=== PATIENT | female | born 1990 | race Caucasian/White ===

== ENCOUNTER 2024-07-23 10:43 | Outpatient (REF) | payer OTHER, MEDICAID, SELFPAY ==
[2024-07-23 11:05] LABS: MANUAL DIFF FLAG NO
[2024-07-23 11:28] LABS: Basophils Percent Auto 0.1 % (0-2); Eosinophils Absolute Auto 0.2 X10*3/uL (0.0-0.4); Eosinophils Percent Auto 1.8 % (0-4); Hematocrit 34.7 % (37.0-47.0); Hemoglobin 10.7 g/dl (12.0-16.0); Imm Gran Abs Auto 0.04 X10*3/uL (0.00-0.03); Imm Gran Pct Auto 0.4 % (0.0-0.4); Lymphocytes Absolute Auto 2.1 X10*3/uL (1.2-4.9); Lymphocytes Percent Auto 22.7 % (20-40); Mean Corpuscular HGB Conc 30.8 g/dl (31.0-35.0); Mean Corpuscular Hemoglobin 22.5 pg (27.0-33.0); Mean Corpuscular Volume 73.1 fL (80.0-98.0); Mean Platelet Volume 10.2 fL (9.4-12.3); Monocytes Absolute Auto 0.7 X10*3/uL (0.1-1.2); Monocytes Percent Auto 7.4 % (2-11); Neutrophils Absolute Auto 6.3 x10*3/uL (2.0-8.3); Neutrophils Percent Auto 67.6 % (45-73); Platelet Count 288 X10*3/uL (160-400); Red Blood Count 4.75 X10*6/uL (4.20-5.50); Red Cell Distribution Width 17.3 % (11.0-16.0); White Blood Count 9.3 X10*3/uL (4.8-10.8)
[2024-07-23 11:34] LABS: Estimated Average Glucose 120 mg/dL; Hemoglobin A1C 111.4418 umol/L; Hemoglobin A1c % 5.8 % (<6.0)
[2024-07-23 12:01] LABS: Rheumatoid Factor < 13.0 IU/mL (<15.0)
[2024-07-23 12:03] LABS: C Reactive Protein 1.93 mg/dL (< or = 0.50); Iron 31 mcg/dL (30-160); Percent Iron Saturation 10 % (15-50); Total Iron Binding Capacity 309 mcg/dL (228-428); Unsaturated Iron Binding 278 ug/dL
[2024-07-23 12:08] LABS: Erythrocyte Sedimentation Rate 17 MM/HR (0-20)
[2024-07-23 12:18] LABS: Vitamin D 25-OH Total 28.6 ng/mL (>30)
--- OUTSIDE RECORDS SUMMARY | 2024-07-23 13:26 | XMS_ITS ---
Author Organization [facility] Address [address] [place] [address] Care Team Providers Care Furnace Hand Name Role Phone Florentino DOWLING, Cheryl Primary Care Provider Unavail able Black, Chantal Unavailable [phone] Ling Zamora Unavailable [phone] Allergies No Known Allergies REASON FOR VISIT Heel pain, Skin Problem Medications Medication SIG (Take, Route, Frequency, Duration) Notes Start Date End Date Status Probiotic Not-Taking LamISIL 250 MG 1 tablet Orally Once a day for 7 days then stop medication for 3 weeks then redo cycle for 90 days 09/12/2018 Not-Taking valACYclovir HCl Not -Taking Larissia Not-Taking Zoloft 50 MG 1 tablet Orally Once a day for 30 day(s) Not-Taking Ciclopirox Olamine 0.77 % 1 application Externally Twice a day to skin of feet including between the toes for 30 days Active Nabumetone 750 MG 1 tablet Orally ONCE A DAY WITH FOOD for 30 day(s) 02/22/2024 Active Atorvastatin Calcium Active Custom Orthotics as directed 11/29/2022 Active Night Splint AFO - L1930 as directed 11/23/2022 Active Multivitamin Active Cats Claw Active Zinc Active Vitamin C Active Iron Active Social History Tobacco Use: Social History Observation Description Date Details (start date - stop date) Former Smoker NA - NA Tobacco Use/Smoking Question Answer Notes Are you a: former smoker Additional Findings: Tobacco Non-User Current no n-smoker Alcohol Screen Question Answer Notes Did you have a drink contain ing alcohol in the past year? Yes How often did you have a dri nk containing alcohol in the past year? Monthly or less (1 point) Points 1 Interpretation Negative Tobacco use other than smoking: Question Answer Notes Are you an other tobacco user? No Problems Problem Type SNOMED Code ICD Code Onset Dates Problem Status W/U Status Risk Notes Problem Plantar fasciitis (204201796) Plantar fasciitis (M72.2) Active confirmed Resistant to previous conservative treatment Vital Signs Height 5ft7in in 06/05/2024 Weight 280 lbs 06/05/2024 BMI 43.85 kg/m2 06/05/2024 Blood pressure systolic 115 mm Hg 06/05/19 25 Blood pressure diastolic 70 mm Hg 025 Procedures Procedure Date Ordered Date Performed Result Body Sit e ,J8094-[id number] TENDON SHEATH/LIGAMENT 06/05/2024 N/A Encounters Encounter Location Date Provider Diagnosis [facility] [address] [place] [address] 06/05/2024 Ling Sunaker Plantar fasciitis M72.2 and Tinea pedis of both feet B35.3 Assessments Encounter Date Diagnosis (ICD Code) Assessment Notes Treatment Notes Treatment Clinical Notes Section Notes 06/05/2024 Plantar fasciitis (ICD-10 - M72.2) Resistant to previous conservative treatment Patient Educated with: RICE THERAPY.pdf (RICE THERAPY.pdf) Patient Educated with: INJECTIONTHERA PY.pdf (INJECTIONTHER APY.pdf) 06/05/2024 Tinea pedis of both feet (ICD-10 - B35.3) Plan Of Treatment Medication Medication Name Sig Start Date Stop Date Notes Ciclopirox Olamine 0.77 % 1 application Externally Twice a day to skin of feet including between the toes for 30 days Treatment Notes Assessment Notes Plantar fasciitis Patient Educated wit h: RICE THERAPY.pdf (RICE THERAPY.pdf) Patient Educated with: INJECTIONTHERAPY.pdf (INJECTIONTHERAPY.pdf) Pending Test Test Name Order Date ,[id number] TENDON SHEATH/LIGAMENT 0 06/05/2024 Next Appt Details Follow Up: 3 Months, Reason: Provider Name:Ling colindres, 09/23/2024 09:00:00 AM, [address] [facility], [address], [place], [address], Procedure Notes * Category Sub-Category Detail Notes Injection Tendon Sheath or Fascia 81195, J 7502 Injection - LEFT Plantar Fascia w/ mixture of Celestone Soluspan 3mg and 1cc 1 percent Xylocaine Plain anes. utilizing aseptic technique. The patient tolerated the procedure well. A dry sterile dressing was applied. Post injection instructions were dispensed, verbally discussed, and confirmed understood by the patient. I explained that a steroid and local anesthetic injections are administered to relieve pain and inflammation and thereby meant to improve function. I explained the possible complications including but not limited to signs/symptoms of steroid flare, infection, bruising, atrophy, discoloration of skin, change/deviation in toe position, and that additional injections may be necessary, Patient relates post-procedural pain assessment improved at ( 0-1) out of 10 Progress Notes * Evelyn SCHROEDER BDOB:[birth year] (34 yo F)Acc No.[id number]:06/05/2024 Progress Note Patient:?Evelyn SCHROEDER B Provider:?Ling Zamora DPM :1990???Age:34 Y???Sex:Female D ate:06/05/2024 Address:[address] [place] [address] Pcp:Cheryl Good NP Subjective: * Chief Complaints: * ???Heel painSkin Problem * HPI: ???Heel pain:?Treatments:?., oral anti-inflammatories, pre-fabricated orthoses, change in shoes, rest/alter normal daily activity.?Severity/Quality:?Pre-injection procedure pain assessment - ( 7) out of 10.?Misc:?Patient states previous conservative therapy has not provided acceptable relief. Despite previous treatments/efforts, patient continues to relate substantial pain and significant functional disability during activity , The patient denies to have received any vaccine therapy within the past month.?Skin problems:?Nature:?scaling , redness.?Location:?Left foot.?Duration:?several days.?Course:?worse.? * ROS:?General/Constitutional:?Nausea?denies.?Vomiting?denies.?Hunger Thirst?denies.?Loss appetite?denies.?Chills?denies.?Fatigue?denies.?Fever?denies.?Night Sweats?denies.?Unexplained weight loss?denies.?Unexplained weight gain?denies.?HEENTM:?Dentures?denies.?Dizziness?denies.?Glasses/contacts?admits.?Retinopathy?de nies.?Blurred/double vision?denies.?TMJ?denies.?Discharge/drainage?denies.?Implants?denies.?Sore throat?denies.?Dental implants?denies.?Hard of hearing ?denies.?Difficulty chewing/swallowing/speaking?denies.?Nose bleeds?denies.?Sore mouth?denies.?Respiratory:?On Oxygen?denies.?Pneumonia/pleurisy?denies.?Bronchitis?denies.?Emphysema?denies.?C oughing?denies.?Cough blood?denies.?Shortness of breath?denies.?Wheezing?denies.?Cardiovascular:?Pacemaker?denies.?MVP?denies.?WPW?denies.?CHF?denies.?Heart attack?denies.?Septal defect?denies.?Rapid beat?denies.?Chest pain ?denies.?Atrial Fib.?denies.?Murmur/Palpitations?denies.?Gastrointestinal:?Hemorrhoids?denies.?Stomach/Abdominal pain?denies.?Dark blood stool?denies.?Irritable bowel ?denies.?Constipation?denies.?Diarrhea?denies.?Hematology:?Swelling?denies.?Clots?denies.?Varicose Veins?denies.?Bruising?denies.?Bleeding problem?denies.?Genitourinary:?Blood urine?denies.?Frequent/Painfu/urination/bladder control?denies.?Kidney stones?denies.?Infection (UTI)?denies.?Nephropathy?denies.?sex trans dis (STD)?denies.?Prostate?denies.?Musculoskeletal:?Hammertoes?denies.?Bunions?denies.?Back Pain?denies.?Muscle Cramps/ Resting?denies.?Muscle cramps / walking?denies.?Generalized aches and pains?denies.?Weakness?denies.?Integ.:?Tovar?denies.?Scars?denies.?Corns/calluses?denies.?Ingrown nails?denies.?Painful nails?denies.?Open Sores?denies.?Rashes?denies.?Neurologic:?Difficulty sleeping?denies.?Brain disorder?denies.?Numbness?denies.?Balance trouble?denies.?Confusion?denies.?Fainting/blackouts?denies.?Tingling?denies.?Tr emors?denies.? * Medical History:? * Surgical History:? 2011, 2016,2022 * Hospitalization/Major Diagno stic Procedure:?Denies Past Hospitalization * Family History:?Mother: massiel rodriguez, diagnosed with Diabetic - NIDDM.?Father: alive, heart attack, diagnosed with Unspecified heart disease.?Paternal Grand Mother: cancer.?Paternal Grand Father: stroke, heart attack, diagnosed with Unspecified heart disease.?Maternal Grand Father: cancer.? * Social History:?Tobacco Use:?Tobacco Use/Smoking?Are you a:?former smoker ?Additional Findings: Tobacco Non-User?Current non-smoker ?Tobacco use other than smoking?Are you an other tobacco user??No ???Drugs/Alcohol:?Drugs?Have you used drugs other than those for medical reasons in the past 12 months??No ?Alcohol Screen?Did you have a drink containing alcohol in the past year??Yes ?How often did you have a drink containing alcohol in the past year??Monthly or less (1 point) ?Points?1 ?Interpretation?Negative ???Miscellaneous:?Caffeine: yes, 1 cup per day. ?Children: yes, 3. ?Exercise: no. ?Marital status: single. 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 * Medications:?TakingIron Alondra min C Zinc Cats Claw Multivitamin Night Splint AFO - L1930 as directed Custom Orthotics as directed Atorvastatin Calcium Nabumetone 750 MG Tablet 1 tablet Orally ONCE A DAY WITH FOOD Taking Iron Taking Vitamin C Taking Zinc Taking Cats Claw Taking Multivitamin Taking Night Splint AFO - L1930 as directed Taking Custom Orthotics as directed Taking Atorvastatin Calcium Taking Nabumetone 750 MG Tablet 1 tablet Orally ONCE A DAY WITH FOOD Not-Taking/PRNProbiotic Zoloft 50 MG Tablet 1 tablet Orally Once a day Larissia valACYclovir HCl LamISIL 250 MG Tablet 1 tablet Orally Once a day for 7 days then stop medication for 3 weeks then redo cycle Medication List reviewed and reconciled with the patientNot-Taking/PRN Probiotic Not-Taking/PRN Zoloft 50 MG Tablet 1 tablet Orally Once a day Not-Taking/PRN Larissia Not-Taking/PRN valACYclovir HCl Not-Taking/PRN LamISIL 250 MG Tablet 1 tablet Orally Once a day for 7 days then stop medication for 3 weeks then redo cycle Medication List reviewed and reconciled with the patient * Allergies:?N.K.D.A.yes[Tommy rodriguez Verified] Objective: * Vitals:?Ht:5ft7in, Wt:280, B SD:43.85, Shoe size:9, BP:115/70mm Hg, Ht-cm: 170.18 cm, Wt-k.01 kg. * Examination: ???Dermatologic: ?SKIN FINDINGS:?Skin shows sign(s) of, erythema, scaling, in a moccasin fashion, no fissure(s) present, LEFT foot.?Heel Pain: ?INSPECTION REVEALS:?Pain on Palpation to Plantar Fascia med. and central bands, intrinsic musc., infra-calcaneal bursa, and med calc tubercle,LEFT.?General Examination: ?GENERAL APPEARANCE:?Reveals a pleasant, alert, well-nourished, well- developed, well hydrated individual, who demonstrates proper attention to hygiene/body habitus, and is in no acute distress, Pt serves as own?historian for office visit today.?ORIENTED:?person, place, and time.?Neurological: ?SENSORY:?Neurological exam reveals intact sensorium, pain sensation normal, vibration sensation intact, pinprick sensation is normal in the lower extremities, Pt denies, anesthesia, burning, paresthesia, tingling, B/L.?DEEP TENDON REFLEXES:?Achilles, 2/4, B/L.?Vascular: ?DP PULSES (B):?3/4, B/L.?PT PULSES (B):?3/4, B/L.?CAPILLARY FILL TIME:?immediate, all digits, B/L.?TROPHIC CONDITION-TEXTURE/ELASTICITY/TURGOR/HAIR GROWTH (B):?normal, B/L.?TEMPERTURE GRADIENT (C):?warm to cool, proximal to distal, B/L.?PIGMENTATION:?normal, B/L.?EDEMA (C):?absent, B/L.?Orthopedic: ?MUSCLE STRENGTH:?5/5 all groups in a symmetrical fashion , B/L.? Assessment: * Assessment: 1.?Plantar fasciitis - M72.2 (Primary)???Notes :Resistant to previous conservative treatment???2.?Tinea pedis of both feet - B35.3???Specify :Acute problem, Uncomplicated (3),Rx drug management (4)??? Plan: * Treatment: 2.?Tinea pedis of both feet? Start Ciclopirox Olamine Cream, 0.77 %, 1 application, Externally, Twice a day to skin of feet including between the toes, 30 days, 60, Refills 2.?? * Procedures:?Injection:?Tendon Sheath or Fascia?27264, J0702 Injection - LEFT Plantar Fascia w/ mixture of Celestone Soluspan 3mg and 1cc 1 percent Xylocaine Plain anes. utilizing aseptic technique. The patient tolerated the procedure well. A dry sterile dressing was applied. Post injection instructions were dispensed, verbally discussed, and confirmed understood by the patient. I explained that a steroid and local anesthetic injections are administered to relieve pain and inflammation and thereby meant to improve function. I explained the possible complications including but not limited to signs/symptoms of steroid flare, infection, bruising, atrophy, discoloration of skin, change/deviation in toe position, and that additional injections may be necessary, Patient relates post-procedural pain assessment improved at ( 0-1) out of 10.? * Procedure Codes:?01239 INJ T ENDON SHEATH/ETDELHUBC5383 INJ BETAMETHSN ACTAT&SOD PHOSPH-3MG * Preventive Medicine:? ??Counseling:?Discussion:?-13: Office or other outpatient visit for the evaluation and management of an established patient, which required a medically appropriate history and/or examination and LOW level of DECISION MAKING for: 1 STABLE ACUTE UNCOMPLICATED PROBLEM, 2 OR MORE MINOR PROBLEMS, OR 1 STABLE CHRONIC PROBLEM, THAT POSE(S) A LOW RISK FOR MORBIDITY/MORTALITY. The visit on the day of the encounter encompassed interpreting the data and educating the patient as to the nature of their condition, treatment options available according to their individual PMH, meds, allergies, and overall health/living conditions, as well as any potential risks or complications that may occur from a failure to adhere to, and participate in, the recommended course of therapy. The discussion included a complete verbal, and/or written explanation of the examination results, any x-rays taken, the proposed diagnosis, and outline of the treatment plan. A schedule for future care needs was also explained. The patient verbalized an understanding of the instructions at this time and agreed to be an active participant in their treatment. If the patient should think of any questions or concerns after the visit, I have encouraged the patient to call the office.?P.R.I.C.E.:?The patient was counseled on the use of P.R.I.C.E. and NSAIDS (if well tolerated) to aid in the recovery from their painful condition.?Steriod Injection:?I explained that a steroid and local anesthetic injections are administered to relieve pain and inflammation and thereby meant to improve function. I explained the possible complications including but not limited to signs/symptoms of steroid flare, infection, bruising, atrophy, discoloration of skin, change/deviation in toe position, and that additional injections may be necessary, cortisone post-injection informative educational handout was dispensed to and reviewed with the patient, In order to prevent any compromise of an effective immune response, it was recommended the patient refrain from any vaccine therapy for the next month. Patient verbally confirmed understanding the previously mentioned protocol.?Tinea Pedis:?The patient was counseled on the diagnosis, potential etiologies, and treatment options for their skin condition. We discussed the risks and benefits of each option from performing no treatment, to utilizing OTC topical skin creams, prescription topical creams, customized compounded topical medications, and, if necessary, to utilize oral antifungal therapy. We discussed the advantages and disadvantages of each possible treatment and importance for adherence to all the recommended therapies for optimum success and avoid potential complications such as open sore/infection/possible hospitalization. We discussed the potential effectiveness of each topical preparation as well as each ones possible side effects and/or patient medication interactions if oral therapy is selected. Patient questions re: the advantages and disadvantages of each treatment choice, medication use/dosage, successful outcomes, and application consistency were reviewed and the patient verbalized that all answers were clearly understood. The patient was told they can help alleviate symptoms by utilizing moisture absorbant innersoles with activated charcoal and baking soda, applying antifungal sprays daily, aerating toe web spaces at night by putting cotton or lambs wool between the toes, alternating shoe gear daily if possible so they can dry out, changing socks at least once during the day, wearing well-ventilated shoes or sandals. The patient has decided to apply antifungal skin creams to their feet as directed. Rx was sent to their pharmacy at the time of visit.? ??Screening/Special Tests:?Fall Risk?Screening:?No falls in the past year ?FALLS: Screening for Future Fall Risk?Have you had any falls with injury in the past year??No * Follow Up:?3 Months * Images: * Sign off status: Completed true * Provider:?Ling Zamora DPM Date:?0 06/05/2024 Generated for James aguilera/Thania/Elizabeth on:?07/23/2024 01:26 PM EST History and Physical Notes * HPI (History of Present Illness) Category Sub-Category Detail Notes Category Not es Heel pain Severity/Quality: Pre-injection procedure pain assessment - ( 7) out of 10 Treatments: ., oral anti-inflamm atories, pre-fabricated orthoses, change in shoes, rest/alter normal daily activity Misc: Patient states previ ous conservative therapy has not provided acceptable relief. Despite previous treatments/efforts, patient continues to relate substantial pain and significant functional disability during activity , The patient denies to have received any vaccine therapy within the past month Skin problems Nature: scaling , redness Location: Left foot Duration: several days Course: worse Examination Category Sub-Category Detail Notes Category Not es Heel Pain INSPECTION REVEALS: Pain on Palp ation to Plantar Fascia med. and central bands, intrinsic musc., infra-calcaneal bursa, and med calc tubercle,LEFT Neurological SENSORY: Neurological exa m reveals intact sensorium, pain sensation normal, vibration sensation intact, pinprick sensation is normal in the lower extremities, Pt denies, anesthesia, burning, paresthesia, tingling, B/L DEEP TENDON REFLEXES: Achilles, 2/4, B/L Dermatologic SKIN FINDINGS: Skin shows sign( s) of, erythema, scaling, in a moccasin fashion, no fissure(s) present, LEFT foot Orthopedic MUSCLE STRENGTH: 5/5 all groups in a symm etrical fashion , B/L General Examination GENERAL APPEARANCE: Reveals a pleasant, alert, well- nourished, well-developed, well hydrated individual, who demonstrates proper attention to hygiene/body habitus, and is in no acute distress, Pt serves as own historian for office visit today ORIENTED: person, place, and t maryam Vascular DP PULSES (B): 3/4, B/L PT PULSES (B): 3/4, B/L CAPILLARY FILL TIME: immediate, all digi ts, B/L TEMPERTURE GRADIENT (C): warm to cool, p roximal to distal, B/L TROPHIC CONDITION-TEXTURE/ELASTICITY/TURGOR/HAIR GROWTH (B): normal, B/L EDEMA (C): absent, B/L PIGMENTATION: normal, B/L
--- OUTSIDE RECORDS SUMMARY | 2024-07-23 13:26 | XMS_ITS | Patient Health Record ---
Author Organization [facility] Address [address] [facility] [place] [address] Care Team Providers Care Research Chef Name Role Phone Florentino DOWLING, Cheryl Primary Care Provider Unavail able Black, Chantal Unavailable [phone] Salo Juan Unavailable [phone] Ling Zamora Unavailable [phone] Allergies No Known Allergies Reason For Referral No Information Medications Medication SIG (Take, Route, Frequency, Duration) Notes Start Date End Date Status Vitamin C Active Iron Active Larissia Not-Taking Zoloft 50 MG 1 tablet Orally Once a day for 30 day(s) Not-Taking Ciclopirox Olamine 0.77 % 1 application Externally Twice a day to skin of feet including between the toes for 30 days Active Probiotic Not-Taking Nabumetone 750 MG 1 tablet Orally ONCE A DAY WITH FOOD for 30 day(s) 02/22/2024 Active Atorvastatin Calcium Active Custom Orthotics as directed 11/29/2022 Active Night Splint AFO - L1930 as directed 11/23/2022 Active Multivitamin Active Cats Claw Active Zinc Active LamISIL 250 MG 1 tablet Orally Once a day for 7 days then stop medication for 3 weeks then redo cycle for 90 days 09/12/2018 Not-Taking valACYclovir HCl Not -Taking Social History Tobacco Use: Social History Observation [...] W/U Status Risk Notes Problem Plantar fasciitis (500715254) Plantar fasciitis (M72.2) Active confirmed Resistant to previous conservative treatment Vital Signs Blood pressure diastolic 70 mm Hg 06/05/2024 Height 5ft7in in 06/05/2024 Blood pressure systolic 115 mm Hg 06/05/2024 Weight 280 lbs 06/05/2024 BMI 43.85 kg/m2 06/05/2024 Procedures Procedure Date Ordered Date Performed Result Body Sit e 34629,[id number] TENDON SHEATH/LIGAMENT 06/05/2024 N/A Encounters Encounter Location Date Provider Diagnosis [address] [address] 02/22/2024 Juan Leong Plantar fascial fibromatosis M72.2 ; Calcaneal spur, right foot M77.31 ; Pain in left foot M79.672 and Pain in right foot M79.[address] [address] 06/05/2024 Ling Zamora Plantar fasciitis M72.2 and Tinea pedis of both feet B35.[address] [address] 02/12/[address] [address] 02/22/[address] [address] 06/09/2024 Ling Zamora Assessments Encounter Date Diagnosis (ICD Code) Assessment Notes Treatment Notes Treatment Clinical Notes Section Notes 02/22/2024 Plantar fascial 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 - M72.2) 02/22/2024 Calcaneal spur, right foot (ICD-10 - M77.31) 06/05/2024 Plantar fasciitis (ICD-10 - M72.2) Resistant to previous conservative treatment Patient Educated with: RICE THERAPY.pdf (RICE THERAPY.pdf) Patient Educated with: INJECTIONTHER SONIY.pdf (INJECTIONTHE RAPY.pdf) 06/05/2024 Tinea pedis of both feet (ICD-10 - B35.3) 02/22/2024 Pain in left foot (ICD-10 - M79.672) 02/22/2024 Pain in right foot (ICD-10 - M79.671) Plan Of Treatment Pending Test Test Name Order Date X ray : Foot, left 3V 11/23/2022 X ray : Foot, right 3V 11/23/2022 [id number] TENDON SHEATH/LIGAMENT 0 06/05/2024 Next Appt Details Provider Name:Ling Quan jens, 09/23/2024 09:00:00 AM, [address] [address], [place], [address], Insurance Providers Payer Name Payer Address Payer Phone Subscriber Number Group Number Insured Name Patient Relationship to Insured Coverage Start Date Coverage End Date [employer] Benefits [address] [address] [place] [address] [id number] Evelyn Burdick Self - patient is the insured Medical (General) History Medical History History ICD Code Chicken pox Anemia Anxiety Cholesterol Headaches/Migraines Surgical History Surgery Date(Month/Year) 2011, 2016,2022
--- OUTSIDE RECORDS SUMMARY | 2024-07-23 13:26 | XMS_ITS | Clinical Summary ---
Author Organization [facility] Address [address] [place] [address] Care Team Providers Care Critical Care Nurse Name Role Phone Unavailable Primary Care Provider Unavailabl e Source Comments PLEASE NOTE, if this patient is a minor, it may be UNLAWFUL to discuss sensitive information that is contained in these records (such as FAMILY PLANNING, MENTAL HEALTH or SUBSTANCE ABUSE) with the minor patient's parent or other person without the patient's specific authorization.[facility] Social History Tobacco Use Types Packs/Day Years Used Date Smoking Tobacco: Never Assessed Social Connections Answer Date Recorded Social Connections and Isolation 0 06/01/2021 Financial Resource Strain Answer Date R ecorded Financial Resource Strain 0 2021 Stress Answer Date Recorded Stress 0 06/01/2021 Physical Activity Answer Date Recorded Physical Activity 0 06/01/2021 Food Insecurity Answer Date Recorded Food 0 06/01/2021 Transportation Needs Answer Date Record ed Transportation 0 06/01/2021 Housing Stability Answer Date Recorded Housing 0 06/01/2021 Safety and Environment Answer Date Souleymane rded Safety 0 06/01/2021 Utilities Answer Date Recorded Utilities 0 06/01/2021 Employment Answer Date Recorded Employment 0 06/01/2021 Comments Unknown Sex and Gender Information Value Date Recorded Sex Assigned at Female 05/30/2022 6:03 AM PST Legal Sex Female 11:43 AM PST Gender Identity Female 05/30/2022 6:03 AM PST Sexual Orientation Straight 05/30/2022 6: 03 AM PST Plan of Treatment Health Maintenance Due Date Last Done Comments HPV Screening 1990 Hepatitis C Screening 1990 Pap + HPV 1990 Tobacco Screening 1990 HIV Screening 2005 Relationship Safety Screening/Counseling 2005 Hypertension Screening (#1) 2008 Cervical Cancer Screening 2011 Pap Smear 2011 Iuk-UKNON-72 ( season) 2024 021, 03/31/2021 Imm-Influenza (#1) 2024 05/11/2023, 1 , 03/28/2010 Alcohol and Drug Screen 05/28/2024 Depression Annual Screen 05/28/2024 Imm-DTaP/Tdap/Td (10 - Td or Tdap) 07/18/2032 07/18/2022, 11/12/2017, 08/25/2011, Additional history exists Imm-Hepatitis B Completed 06/28/1996, 05/1995, 12/27/1995 Cervical Ablation/Cold-Knife Conization Discontinued Cervical Cryotherapy Discontinued Colposcopy Discontinued Endometrial Biopsy Discontinued Excision/Leep Discontinued HPV Genotyping Discontinued Vaginal Pap Discontinued Vulvoscopy Discontinued Insurance [place] MEDICAID [facility]
--- OUTSIDE RECORDS SUMMARY | 2024-07-23 13:27 | XMS_ITS ---
Author Organization [facility] Address [address] [place] [address] Care Team Providers Care Cafeteria Helper Name Role Phone Florentino DOWLING, Cheryl Primary Care Provider Unavail able Black, Chantal Unavailable [phone] Juan Leong Unavailable [phone] REASON FOR VISIT Buy Comfort Plus W9-9.5 3/4 length Encounters Encounter Location Date [facility] [address] [place] [address] 02/22/2024 Juan Leong Plan Of Treatment Next Appt Details Provider Name:Ling Quan jens, 09/23/2024 09:00:00 AM, [address] [address], [place], [address], Progress Notes * Evelyn SCHROEDER BDOB:[birth year] (33 yo F)Acc No.[id number]:02/22/2024 Patient:?Evelyn Schroeder :1990???Age:33 Y???Sex:Female Address:[address] [place] [address], [address] * true * Date:? Generated for Ronniei ale/Thania/eTransmitting on:?07/23/2024 01:26 PM EST
--- OUTSIDE RECORDS SUMMARY | 2024-07-23 13:27 | XMS_ITS ---
Author Organization [facility] Address [address] [place] [address] Care Team Providers Care Anthropology Department Chair Name Role Phone Florentino DOWLING, Cheryl Primary Care Provider Unavail able Black, Chantal Unavailable [phone] Ling Zamora Unavailable [phone] REASON FOR VISIT MRI appt Encounters Encounter Location Date Provider Diagnosis [facility] [address] [place] [address] 06/09/2024 Ling Zamora Plan Of Treatment Next Appt Details Provider Name:Ling colindres, 09/23/2024 09:00:00 AM, [address] [facility], [address], [address], Progress Notes * Evelyn SCHROEDER BDOB:[birth year] (34 yo F)Acc No.[id number]:06/09/2024 Patient:?Evelyn SCHROEDER :1990???Age:34 Y???Sex:Female Address:[address] [place] [address], [address] * true * Date:? Generated for Printi ng/Faxing/eTransmitting on:?07/23/2024 01:26 PM EST
--- OUTSIDE RECORDS SUMMARY | 2024-07-23 13:27 | XMS_ITS | Data Portability ---
Author Organization [place] [facility] Address [address] [place] [address] Care Team Providers Care Punchboard Stuffer Name Role Phone NADEEM PLUNKETT Primary Care Provider Assessment No assessment recorded. Plan of Treatment Reminders Order Date Submit Date Provider Last Modified By Organization Details Last Modified Time Details Appointments None recorded. Lab None recorded. Referral None recorded. Procedures None recorded. Surgeries None recorded. Imaging None recorded. Medication Orders Augmentin 875 mg-125 mg tablet 2023 [facility] [email or web address] [facility]/Pharmacy #[id number], [address] [place], [address], 4 15:32:53 Patient TargetsNo targets recorded. Patient InstructionsNo instructions recorded. Reason for Referral None Reported. Problems Name Problem SNOMED Code Status Onset Date Resolution Date Notes Provider Name and Address Organization Details Recorded Time Peritonsillar abscess 62413247 Active 2023 CONG Pennington MD [address] [place] [address], [address] [facility] 4 15:52:53 Problem Notes None recorded. Medical Equipment None Reported. Medications Name Sig Start Date Stop Date Status Note LastModified by Organization Details LastModified Time cyclobenzaprin e 10 mg tablet TAKE 1 TABLET BY MOUTH 3 TIMES A DAY FOR 10 DAYS active Not Available Not Available No t Available acetaminophen 325 mg tablet active Not Available Not Availabl e Not Available atorvastatin 20 mg tablet TAKE 1 TABLET BY MOUTH EVERY DAY active Not Available Not Available No t Available azithromycin 250 mg tablet TAKE 2 TABLETS BY MOUTH TODAY, THEN TAKE 1 TABLET DAILY FOR 4 DAYS DIRECTED active Not Available Not Available No t Available clindamycin HCl 150 mg capsule active Not Available Not Available Not Available penicillin V potassium 500 mg tablet TAKE 1 TABLET BY MOUTH THREE TIMES A DAY FOR 10 DAYS active Not Available Not Available No t Available benzonatate 100 mg capsule TAKE 1 CAPSULE BY MOUTH 3 TIMES A DAY FOR 7 DAYS active Not Available Not Available No t Available metronidazole 0.75 % topical cream APPLY THIN LAYER TO AFFECTED AREAS ON FACE 1-2 TIMES DAILY. active Not Available Not Available No t Available ibuprofen 200 mg tablet active Not Available Not Available No t Available ibuprofen 600 mg tablet TAKE 1 TABLET BY MOUTH EVERY 6 HOURS NEEDED FOR MODERATE PAIN active Not Available Not Available No t Available loratadine 10 mg tablet TAKE 1 TABLET BY MOUTH EVERY DAY active Not Available Not Available No t Available amoxicillin 875 mg-potassium clavulanate 125 mg tablet TAKE 1 TABLET BY MOUTH EVERY 12 HOURS FOR 10 DAYS active Not Available Not Available No t Available Ventolin HFA 90 mcg/actuation aerosol inhaler INHALE 2 PUFFS EVERY 4 HOURS NEEDED FOR WHEEZING active Not Available Not Available No t Available azelaic acid 15 % topical gel APPLY TO THE FACE EVERY NIGHT active Not Available Not Available No t Available bupropion HCl XL 150 mg 24 hr tablet, extended release 1 TABLET BY MOUTH EVERY 24 HOURS,X6 WEEK(S) active Not Available Not Available No t Available riboflavin (vitamin B2) 400 mg tablet TAKE 1 TABLET BY MOUTH EVERY DAY active Not Available Not Available No t Available Vitals Date Recorded Body height Body mass index (BMI) Body weight Systolic blood pressure Diastolic blood pressure Provider Name and Address Organization Details Last Updated DateTime 01/24/2024 170.18 cm 45.4 kg/m2 601056.7 9 g 128 mm[Hg] 75 mm[Hg] Magy Quiñonez [place] - [facility] 15:22:37 Social History None recorded. Functional Status None recorded. Mental Status None recorded. Family History Nothing Reported. Medical History No medical history recorded. Gynecological HistoryNo gynecological history recorded. Obstetrics History GPAL:G 0 P 0 0 0 0 Past Encounters Encounter ID Performer Location Encounter Start Date Encounter Closed Date Diagnosis/Indication Diagnosis SNOMED-CT Code Diagnosis ICD10 Code Diagnosis Note [id number] CONG ESPINOZA MD [facility] [address] [address] 01/24/2024 14:55:03 01/24/2024 15:59:06 Peritonsillar abscess 52817104 J36 She is clinically improved with improved mouth opening, voice and pain. No sign of residual abscess. I recommend Augmentin which I sent to her pharmacy. I asked her to call if her condition worsens. I would not recommend tonsillect chloé at this point however she continues to have trouble it could be considered . Health Concerns Section Related Observation LastModified by Organization Detai ls LastModified Time None Recorded Concern Status LastModified by Organization Details LastModified Time None Recorded Advance Directives Directive None Recorded Payers Encounter Date Sequence Insurance Name Policy Number Policy Lester Covered Member ID Lester Member ID Guarantor Name 01/24/2024 2 [place] : [facility] Evelyn Samuelimaldi [id number] Evelyn Saad Burdick 01/24/2024 1 [employer] (EPO) [id number] Evelyn Saad SamuelHeavenly [id number] Evelynrodolfo Burdick Notes Date Note Type Note Provider Name and Address Organization Details Recorded Time 01/24/2024 text/html Sore throat bega n 01/15. She began abx then (PCN) by urgent care. 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 She has been on abx 3-4 times in the last year for sore throat. CONG ESPINOZA MD [address] [place] [address], [address], [place] - [facility] 01/24/2024 16:00:41 OBGyn Episode No OBEpisode recorded.
[2024-07-25 19:18] LABS: Cyclic Citrullinated Peptide 44 UNITS
== END 2024-07-23 10:44 | disposition home or self-care (01) ==
LOC: HO.LAB 10:43
PROVIDERS: PCP Nurse Practitioner Family; Visit Provider Nurse Practitioner Family
DX: D50.9 Iron deficiency anemia, unspecified (principal); R73.03 Prediabetes; E55.9 Vitamin D deficiency, unspecified; M25.50 Pain in unspecified joint
CPT/HCPCS: 36415; 82306; 83036; 83540; 85025; 85652; 86140; 86200; 86431

== ENCOUNTER 2024-09-10 11:52 | Outpatient (REF) | payer OTHER, MEDICAID, SELFPAY ==
[2024-09-10 12:12] LABS: MANUAL DIFF FLAG NO
[2024-09-10 13:33] LABS: Basophils Percent Auto 0.3 % (0-2); Eosinophils Absolute Auto 0.1 X10*3/uL (0.0-0.4); Eosinophils Percent Auto 1.4 % (0-4); Hematocrit 35.7 % (37.0-47.0); Hemoglobin 10.8 g/dl (12.0-16.0); Imm Gran Abs Auto 0.03 X10*3/uL (0.00-0.03); Imm Gran Pct Auto 0.3 % (0.0-0.4); Lymphocytes Absolute Auto 2.1 X10*3/uL (1.2-4.9); Lymphocytes Percent Auto 20.9 % (20-40); Mean Corpuscular HGB Conc 30.3 g/dl (31.0-35.0); Mean Corpuscular Hemoglobin 22.2 pg (27.0-33.0); Mean Corpuscular Volume 73.3 fL (80.0-98.0); Mean Platelet Volume 10.7 fL (9.4-12.3); Monocytes Absolute Auto 0.9 X10*3/uL (0.1-1.2); Neutrophils Absolute Auto 6.9 x10*3/uL (2.0-8.3); Neutrophils Percent Auto 68.1 % (45-73); Platelet Count 310 X10*3/uL (160-400); Red Blood Count 4.87 X10*6/uL (4.20-5.50); Red Cell Distribution Width 18.1 % (11.0-16.0); White Blood Count 10.2 X10*3/uL (4.8-10.8)
--- OUTSIDE RECORDS SUMMARY | 2024-09-10 14:21 | XMS_ITS | Encounter Summary ---
Author Organization [facility] Address [address] [place] [address] Phone Care Team Providers Care Slice Plug Cutter Operator Name Role Phone Unavailable Primary Care Provider Unavailabl e Encounter Details Date Type Department Care Team ([facility] st Contact Info) Description 01/11/2017 Conversion Encounter [facility] - [address] [address] Social History Tobacco Use Types Packs/Day Years Used Date Smoking Tobacco: Never Assessed Comments Unknown Sex and Gender Information Value Date Recorded Sex Assigned at Not on file Legal Sex Female 4:29 PM EDT Gender Identity Not on file Sexual Orientation Not on file documented as of this encounter Plan of Treatment Not on file documented as of this encounter Visit Diagnoses Not on filedocumented in this encounter
--- OUTSIDE RECORDS SUMMARY | 2024-09-10 14:21 | XMS_ITS | Clinical Summary ---
Author Organization [facility] Address [address] [place] [address] Care Team Providers Care Pipe Production Worker Name Role Phone Unavailable Primary Care Provider [...] Health Maintenance Due Date Last Done Comments Anxiety Screening 1990 HPV Screening 1990 Hepatitis C Screening 1990 Pap + HPV 1990 Tobacco Screening 1990 HIV Screening 2005 Relationship Safety Screening/Counseling 2005 Hypertension Screening (#1) 2008 Cervical Cancer Screening 2011 Pap Smear 2011 Obb-LOFVF-87 ( season) 2024 021, 03/31/2021 Imm-Influenza (#1) 2024 05/11/2023, 1 , 03/28/2010 Alcohol and Drug Screen 05/28/2024 Depression Annual Screen 05/28/2024 Imm-DTaP/Tdap/Td (10 - Td or Tdap) 07/18/2032 07/18/2022, 11/12/2017, 08/25/2011, Additional history exists Imm-Hepatitis B Completed 06/28/1996, 05/1995, 12/27/1995 Cervical Ablation/Cold-Knife Conization Discontinued Cervical Cryotherapy Discontinued Colposcopy Discontinued Endometrial Biopsy Discontinued Excision/Leep Discontinued HPV Genotyping Discontinued Vaginal Pap Discontinued Vulvoscopy Discontinued [facility] [place] [facility]
--- OUTSIDE RECORDS SUMMARY | 2024-09-10 14:21 | XMS_ITS | Clinical Summary ---
Author Organization [facility] Address [address] [place] [address] Phone Care Team Providers Care Grader Green Meat Name Role Phone Unavailable Primary Care Provider Unavailabl e Immunizations Immunization Administration Dates Next Due DTP 12/26/1994, 2,1990, 991,1990 HPV, Quadrivalent 02/26/2008,08/22/2007,06/26/19 08 Hep B, ped/adol 06/28/1996,01/27/1996,12/27/1995 Hib (PRP-T) 07/27/1991, 1,1990, 991 MMR 12/26/1994,07/27/1991 Meningococcal Conj (Menactra) MCV4P 09/04/2006 OPV 12/26/1994, 2,1990, 991 Tdap 09/04/2006 Social History Tobacco Use Types Packs/Day Years Used Date Smoking Tobacco: Never Assessed Comments Unknown Sex and Gender Information Value Date Recorded Sex Assigned at Not on file Legal Sex Female 4:29 PM EDT Gender Identity Not on file Sexual Orientation Not on file Plan of Treatment Health Maintenance Due Date Last Done Comments Varicella Vaccines (1 of 2 - 13+ 2-dose series) 2003 DTaP,Tdap,and Td Vaccines (7 - Td or Tdap) 09/04/2016 09/04/2006, 12/26/1994, 10/27/1991, Additional history exists Influenza Vaccines (#1) 2023 COVID-19 Vaccine ( season) 2024 HIB Vaccines Completed 07/27/1991, 05/1990, 1990, Additional history exists IPV Vaccines Completed 12/26/1994, 0605/1991, 1990, Additional history exists MMR Vaccines Completed 12/26/1994, 07/27/1991 Hepatitis B Vaccines Completed 06/28/1996, 01/27/1996, 12/27/1995 Meningococcal Vaccine Completed 09/04/2006 HPV Vaccines Completed 02/26/2008, 07/27, 06/26/2007 Hepatitis A Vaccines Aged Out No long er eligible based on patient's age to complete this topic Men B Vaccine Aged Out No longer elig ible based on patient's age to complete this topic Pneumococcal Vaccine Aged Out No long er eligible based on patient's age to complete this topic
--- OUTSIDE RECORDS SUMMARY | 2024-09-10 14:21 | XMS_ITS ---
Author Organization [facility] Address [address] [place] [address] Care Team Providers Care Trouble Dispatcher Name Role Phone Florentino DOWLING, Cheryl Primary Care Provider Unavail able Black, Chantal Unavailable [phone] Ling Zamora Unavailable [phone] Allergies No Known Allergies REASON FOR VISIT [...] W/U Status Risk Notes Problem Plantar fasciitis (500316219) Plantar fasciitis (M72.2) Active confirmed Resistant to previous conservative treatment Vital Signs Height 5ft7in in 06/05/2024 Weight 280 lbs 06/05/2024 BMI 43.85 kg/m2 06/05/2024 Blood pressure systolic 115 mm Hg 06/05/19 25 Blood pressure diastolic 70 mm Hg 025 Procedures Procedure Date Ordered Date Performed Result Body Sit e ,H2788-XSF TENDON SHEATH/LIGAMENT 06/05/2024 N/A Encounters Encounter Location Date Provider Diagnosis [facility] [address] [place] [address] 06/05/2024 Ling Zamora Plantar fasciitis M72.2 and [...] (INJECTIONTHERAPY.pdf) Pending Test Test Name Order Date ,[id number] TENDON SHEATH/LIGAMENT 0 06/05/2024 Next Appt Details Follow Up: 3 Months, Reason: Provider Name:Ling colindres, 09/23/2024 09:00:00 AM, [address] [facility], [address], [place], [address], Procedure Notes * Category Sub-Category Detail Notes Injection Tendon Sheath or Fascia 46330, J 0702 Injection - LEFT Plantar Fascia w/ mixture [...] Evelyn SCHROEDER BDOB:[birth year] (34 yo F)Acc No.[id number]:06/05/2024 Progress Note Patient:?Evelyn SCHROEDER B Provider:?Ling Zamora DPM :1990???Age:34 Y???Sex:Female D ate:06/05/2024 Address:[address] [place] [address] Pcp:Cheryl Good NP Subjective: * Chief Complaints: [...] 3. ?Exercise: no. ?Marital status: single. 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 * Medications:?TakingIron Aolndra min C Zinc Cats Claw Multivitamin Night [...] rodriguez Verified] Objective: * Vitals:?Ht:5ft7in, Wt:280, B TX:43.85, Shoe size:9, BP:115/70mm Hg, Ht-cm: 170.18 cm, [...] 60, Refills 2.?? * Procedures:?Injection:?Tendon Sheath or Fascia?92295, J0702 Injection - LEFT Plantar Fascia w/ [...] ( 0-1) out of 10.? * Procedure Codes:?18995 INJ T ENDON SHEATH/HOCEFWHOW1145 INJ BETAMETHSN ACTAT&SOD PHOSPH-3MG * Preventive Medicine:? [...] DPM Date:?0 06/05/2024 Generated for James aguilera/Thania/Elizabeth on:?09/10/2024 02:21 PM EDT History and Physical Notes * HPI (History [...]
--- OUTSIDE RECORDS SUMMARY | 2024-09-10 14:21 | XMS_ITS | Data Portability ---
Author Organization [place] [facility] Address [address] [place] [address] Care Team Providers Care Head Waiter/Waitress Name Role Phone NADEEM PLUNKETT Primary Care Provider [phone] Assessment No assessment recorded. Plan of Treatment Reminders Order Date Submit Date Provider Last Modified By Organization Details Last Modified Time Details Appointments None recorded. Lab None recorded. Referral None recorded. Procedures None recorded. Surgeries None recorded. Imaging None recorded. Medication Orders Augmentin 875 mg-125 mg tablet 2023 [facility] [email or web address] [facility]/Pharmacy #[id number], [address] [place], [address], 4 15:32:53 Patient TargetsNo targets recorded. Patient InstructionsNo instructions recorded. Reason for Referral None Reported. Problems Name Problem SNOMED Code Status Onset Date Resolution Date Notes Provider Name and Address Organization Details Recorded Time Peritonsillar abscess 86735992 Active 2023 CONG Pennington MD [address] [place] [address], [address] [facility] 4 15:52:53 Problem Notes None recorded. Medical [...] Updated DateTime 01/24/2024 170.18 cm 45.4 kg/m2 960927.7 9 g 128 mm[Hg] 75 mm[Hg] Magy Quiñonez [place] - [facility] 15:22:37 Social History None recorded. Functional Status None recorded. Mental Status None recorded. Family History Nothing Reported. Medical History No medical history recorded. Gynecological HistoryNo gynecological history recorded. Obstetrics History GPAL:G 0 P 0 0 0 0 Past Encounters Encounter ID Performer Location Encounter Start Date Encounter Closed Date Diagnosis/Indication Diagnosis SNOMED-CT Code Diagnosis ICD10 Code Diagnosis Note [id number] CONG ESPINOZA MD [facility] [address] [address] 01/24/2024 14:55:03 01/24/2024 15:59:06 Peritonsillar abscess 08199024 J36 She is clinically improved with improved [...] Lester Member ID Guarantor Name 01/24/2024 2 [place] [facility] Evelyn Samuelimaldi [id number] Evelyn Saad Buridck 01/24/2024 1 [employer]ET[employer] (EPO) [id number] Evelyn Saad SamuelHeavenly [id number] Evelynrodolfo Burdick Notes Date Note Type Note Provider Name and Address Organization Details Recorded Time 01/24/2024 text/html Sore throat bega n 01/15. She began abx then (PCN) by urgent care. 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 She has been on abx 3-4 times in the last year for sore throat. CONG ESPINOZA MD [address] [place] [address], [address], [place] [facility] 01/24/2024 16:00:41 OBGyn Episode No OBEpisode recorded.
--- OUTSIDE RECORDS SUMMARY | 2024-09-10 14:21 | XMS_ITS | Patient Health Record ---
Author Organization [facility] Address [address] [place] [address] Care Team Providers Care Front Office Agent Name Role Phone Florentino DOWLING, Cheryl Primary Care Provider Unavail able Black, Chantal Unavailable [phone] Juan Leong Unavailable [phone] Ling Zamora Unavailable [phone] Allergies No Known Allergies Reason For Referral [...] W/U Status Risk Notes Problem Plantar fasciitis (469207933) Plantar fasciitis (M72.2) Active confirmed Resistant to previous conservative treatment Vital Signs Blood pressure diastolic 70 mm Hg 06/05/2024 Height 5ft7in in 06/05/2024 Blood pressure systolic 115 mm Hg 06/05/2024 Weight 280 lbs 06/05/2024 BMI 43.85 kg/m2 06/05/2024 Procedures Procedure Date Ordered Date Performed Result Body Sit e 59992,X5021-OFC TENDON SHEATH/LIGAMENT 06/05/2024 N/A Encounters Encounter Location Date Provider Diagnosis [address] [address] 02/22/2024 Juan Leong Plantar fascial fibromatosis M72.2 ; Calcaneal spur, right foot M77.31 ; Pain in left foot M79.672 and Pain in right foot M79.[address] [address] 06/05/2024 Ling Zamora Plantar fasciitis M72.2 and Tinea pedis of both feet B35.[address] [address] 02/12/[address] [address] 02/22/[address] [address] 06/09/2024 Ling Zamora Assessments Encounter Date Diagnosis [...] X ray : Foot, right 3V 11/23/2022 58670,Z6039-OYC TENDON SHEATH/LIGAMENT 0 06/05/2024 Next Appt Details Provider Name:Ling Sunrodolfo colindres, 09/23/2024 09:00:00 AM, [address] [address], [place], [address], Insurance Providers Payer Name Payer Address Payer Phone Subscriber Number Group Number Insured Name Patient Relationship to Insured Coverage Start Date Coverage End Date Blue Benefits [address] [address] [place] [address] [id number] Evelyn Burdick Self - patient is the insured Medical (General) History Medical History History ICD Code Chicken pox Anemia Anxiety Cholesterol Headaches/Migraines Surgical History Surgery Date(Month/Year) 2011, 2016,2022
--- OUTSIDE RECORDS SUMMARY | 2024-09-10 14:22 | XMS_ITS ---
Author Organization [facility] Address [address] [place] [address] Care Team Providers Care Supervisor Game Farm Name Role Phone Florentino MEAT PICKLER, Cheryl Primary Care Provider Unavail able Black, Chantal Unavailable [phone] Ling Zamora Unavailable [phone] REASON FOR VISIT MRI appt Encounters Encounter Location Date Provider Diagnosis [facility] [address] [place] [address] 06/09/2024 Ling Zamora Plan Of Treatment Next Appt Details Provider Name:Ling colindres, 09/23/2024 09:00:00 AM, [address] [facility], [address], [address], Progress Notes * Evelyn SCHROEDER BDOB:[birth year] (34 yo F)Acc No.[id number]:06/09/2024 Patient:?Evelyn SCHROEDER :1990???Age:34 Y???Sex:Female Address:[address] [place] [address], [address] * true * Date:? Generated for Printi ng/Faxing/eTransmitting on:?09/10/2024 02:21 PM EDT
--- OUTSIDE RECORDS SUMMARY | 2024-09-10 14:22 | XMS_ITS ---
Author Organization [facility] Address [address] [place] [address] Care Team Providers Care Cover Stitch Machine Operator Name Role Phone Florentino EMBALMER ASSISTANT, Cheryl Primary Care Provider Unavail able Black, Chantal Unavailable [phone] Juan Leong Unavailable [phone] REASON FOR VISIT Buy Comfort Plus W9-9.5 3/4 length Encounters Encounter Location Date [facility] [address] [place] [address] 02/22/2024 Juan Leong Plan Of Treatment Next Appt Details Provider Name:Ling Quan jens, 09/23/2024 09:00:00 AM, [address], [address], Progress Notes * Evelyn SCHROEDER BDOB:[birth year] (33 yo F)Acc No.[id number]:02/22/2024 Patient:?Evelyn Schroeder :1990???Age:33 Y???Sex:Female Address:[address] [place], [address] * true * Date:? Generated for Printi ng/Faxing/eTransmitting on:?09/10/2024 02:21 PM EDT
[2024-09-10 14:31] LABS: TSH reflex Free T4 2.02 uIU/mL (0.32-4.0)
== END 2024-09-10 11:53 | disposition home or self-care (01) ==
LOC: HO.LAB 11:52
PROVIDERS: PCP Nurse Practitioner Family; Visit Provider Nurse Practitioner Women's Health
DX: N93.9 Abnormal uterine and vaginal bleeding, unspecified (principal)
CPT/HCPCS: 36415; 84403; 84443; 85025

== ENCOUNTER 2024-09-24 13:45 | Outpatient (REF) | payer OTHER, MEDICAID, SELFPAY ==
[2024-09-24 14:39] LABS: Alanine Aminotransferase 24 U/L (0-31); Albumin Level 3.7 g/dL (3.5-5.0); Alkaline Phosphatase 103 U/L (39-117); Aspartate Amino Transferase 19 U/L (5-31); Bilirubin Direct 0.1 mg/dL (0.0-0.5); Bilirubin Total 0.3 mg/dL (0.0-1.0); Total Protein 7.2 g/dL (6.5-8.0)
--- OUTSIDE RECORDS SUMMARY | 2024-09-24 15:00 | XMS_ITS | Patient Health Record ---
Author Organization [facility] Address [address] [place] [address] Care Team Providers Care Employment And Claims Aide Name Role Phone Florentino DOWLING, Cheryl Primary Care Provider Unavail able Ling Zamora Unavailable [phone] Juan Leong Unavailable [phone] Allergies No Known Allergies Reason For Referral No Information Medications Medication SIG (Take, Route, Frequency, Duration) Notes Start Date End Date Status Cats Claw Active LamISIL 250 MG 1 tablet Orally Once a day for 7 days then stop medication for 3 weeks then redo cycle for 90 days 09/12/2018 Not-Taking Zinc Active valACYclovir HCl Not -Taking Vitamin C Active Larissia Not-Taking Iron Active Zoloft 50 MG 1 tablet Orally Once a day for 30 day(s) Not-Taking Probiotic Not-Taking Ciclopirox Olamine 0.77 % 1 application Externally Twice a day to skin of feet including between the toes for 30 days Active Nabumetone 750 MG 1 tablet Orally ONCE A DAY WITH FOOD for 30 day(s) 02/22/2024 Active Atorvastatin Calcium Active Night Splint AFO - L1930 as directed 11/23/2022 Not-Taking Multivitamin Active Custom Orthotics as directed 11/29/2022 Not-Taking Social History Tobacco Use: Social History Observation Description Date Details (start date - stop date) Never Smoker NA - NA Alcohol Screen Question Answer Notes Did you have a drink contain ing alcohol in the past year? Yes How often did you have a dri nk containing alcohol in the past year? Monthly or less (1 point) Points 1 Interpretation Negative Tobacco use other than smoking: Question Answer Notes Are you an other tobacco user? No Tobacco Control (Standard) Question Answer Notes Tobacco use: Nonsmoker Additional Findings: Tobacco non-user Current no nsmoker Problems Problem Type SNOMED Code ICD Code Onset Dates Problem Status W/U Status Risk Notes Problem Plantar fasciitis (985399870) Plantar fasciitis (M72.2) Active confirmed Resistant to previous conservative treatment Vital Signs Blood pressure diastolic 70 mm Hg 06/05/2024 Height 5ft 7in in 09/23/2024 Blood pressure systolic 115 mm Hg 06/05/2024 Weight 280 lbs 09/23/2024 BMI 43.85 kg/m2 09/23/2024 Procedures Procedure Date Ordered Date Performed Result Body Sit e 03962,[id number] TENDON SHEATH/LIGAMENT 06/05/2024 N/A Encounters Encounter Location Date Provider Diagnosis [address] [address] 02/22/2024 Juan Leong Plantar fascial fibromatosis M72.2 ; Calcaneal spur, right foot M77.31 ; Pain in left foot M79.672 and Pain in right foot M79.[address] [address] 06/05/2024 Ling Zamora Plantar fasciitis M72.2 and Tinea pedis of both feet B35.[address] [address] 09/23/2024 Ling Zamora Acute left ankle pain M25.572 ; Sprain of anterior talofibular ligament of left ankle, initial encounter S93.492A ; Pain in right toe(s) M79.674 ; Onychomycosis B35.1 and Pain in left toe(s) M79.675 [facility] [address] [place] [address] 09/23/2024 Ling Zamora [address] [address] 02/12/2024 Juan Leong [facility] [address] [place] [address] 02/22/2024 Juan Leong [address] [place] [address] 06/09/2024 Ling Zamora Assessments Encounter Date Diagnosis (ICD Code) Assessment Notes Treatment Notes Treatment Clinical Notes Section Notes 02/22/2024 Plantar fascial 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 - M72.2) 02/22/2024 Calcaneal spur, right foot (ICD-10 - M77.31) 06/05/2024 Plantar fasciitis (ICD-10 - M72.2) Resistant to previous conservative treatment Patient Educated with: RICE THERAPY.pdf (RICE THERAPY.pdf) Patient Educated with: INJECTIONTHER APY.pdf (INJECTIONTHE RAPY.pdf) 09/23/2024 Acute left ankle pain (ICD-10 - M25.572) 09/23/2024 Sprain of anterior talofibular ligament of left ankle, initial encounter (ICD-10 - S93.492A) Dx New problem, Prognosis Uncertain (4) 06/05/2024 Tinea pedis of both feet (ICD-10 - B35.3) 02/22/2024 Pain in left foot (ICD-10 - M79.672) 09/23/2024 Pain in right toe(s) (ICD-10 - M79.674) 02/22/2024 Pain in right foot (ICD-10 - M79.671) 09/23/2024 Onychomycosis (ICD-10 - B35.1) 09/23/2024 Pain in left toe(s) (ICD-10 - M79.675) Plan Of Treatment Pending Test Test Name Order Date X ray : Ankle, left 3V 09/23/2024 *Liver Function Test (LFT) 09/23/2024 X ray : Foot, left 3V 11/23/2022 X ray : Foot, right 3V 11/23/2022 [id number] TENDON SHEATH/LIGAMENT 0 06/05/2024 Next Appt Details Provider Name:Ling Avelina colindres, 10/30/2024 03:45:00 PM, [address] [place], [address], Insurance Providers Payer Name Payer Address Payer Phone Subscriber Number Group Number Insured Name Patient Relationship to Insured Coverage Start Date Coverage End Date Blue Benefits [address] [address] [place] [address] [id number] Evelyn Burdick Self - patient is the insured Medical (General) History Medical History History ICD Code Chicken pox Anemia Anxiety Cholesterol Headaches/Migraines Surgical History Surgery Date(Month/Year) 2011, 2016,2022
--- OUTSIDE RECORDS SUMMARY | 2024-09-24 15:00 | XMS_ITS | Encounter Summary ---
Author Organization [facility] Address [address] [place] [address] Phone Care Team Providers Care Mat Machine Operator Name Role Phone Unavailable Primary Care Provider Unavailabl e Encounter Details Date Type Department Care Team ([facility] st Contact Info) Description 01/11/2017 Conversion Encounter [facility] - [address] [address] Social History Tobacco Use Types Packs/Day Years [...]
--- OUTSIDE RECORDS SUMMARY | 2024-09-24 15:00 | XMS_ITS ---
Author Organization [facility] Address [address] [place] [address] Care Team Providers Care Ferryboat Ticket Taker Name Role Phone Florentino HEALTH PROMOTER, Cheryl Primary Care Provider Unavail Ling Gatica Unavailable [phone] REASON FOR VISIT [facility] [place] Encounter Location Date Provider Diagnosis [facility] [address] [address] 09/23/2024 Ling Zamora Plan Of Treatment Next Appt Details Provider Name:Ling colindres, 10/30/2024 03:45:00 PM, [address] [place], [address], Progress Notes * ELDAJaysona BDOB:[birth year] (34 yo F)Acc No.[id number]:09/23/2024 Patient:?Jayson SCHROEDERrodolfo Nash :1990???Age:34 Y???Sex:Female Address:[address] [place] [address], [address] * * Date:?
--- OUTSIDE RECORDS SUMMARY | 2024-09-24 15:00 | XMS_ITS | Clinical Summary ---
Author Organization [facility] Address [address] [place] [address] Phone Care Team Providers Care Fur Cutter Name Role Phone Unavailable Primary Care Provider [...]
--- OUTSIDE RECORDS SUMMARY | 2024-09-24 15:01 | XMS_ITS ---
Author Organization [facility] Address [address] [place] [address] Care Team Providers Care Child Care Associate Name Role Phone Florentino DOWLING, Cheryl Primary Care Provider Unavail able Ling Zamora Unavailable [phone] Allergies No Known Allergies REASON FOR VISIT Ankle pain, Fungal Nails Medications Medication SIG (Take, Route, Frequency, Duration) Notes Start Date End Date Status valACYclovir HCl Not -Taking Larissia Not-Taking Zoloft [...] Calcium Active Custom Orthotics as directed 11/29/2022 Not-Taking Night Splint AFO - L1930 as directed 11/23/2022 Not-Taking Multivitamin Active Cats Claw Active LamISIL 250 MG 1 tablet Orally Once a day for 7 days then stop medication for 3 weeks then redo cycle for 90 days 09/12/2018 Not-Taking Zinc Active Vitamin C Active Iron Active [...] Additional Findings: Tobacco non-user Current no nsmoker Vital Signs Height 5ft 7in in 09/23/2024 Weight 280 lbs 09/23/2024 BMI 43.85 kg/m2 09/23/2024 Encounters Encounter Location Date Provider Diagnosis [facility] [address] [address] 09/23/2024 Ling Zamora Acute left ankle pain M25.572 ; Sprain of anterior talofibular ligament of left ankle, initial encounter S93.492A ; Pain in right toe(s) M79.674 ; Onychomycosis B35.1 and Pain in left toe(s) M79.675 Assessments Encounter Date Diagnosis (ICD Code) Assessment Notes Treatment Notes Treatment Clinical Notes Section Notes 09/23/2024 Acute left ankle pain (ICD-10 - M25.572) 09/23/2024 Sprain of anterior talofibular ligament of left ankle, initial encounter (ICD-10 - S93.492A) Dx New problem, Prognosis Uncertain (4) 09/23/2024 Pain in right toe(s) (ICD-10 - M79.674) 09/23/2024 Onychomycosis (ICD-10 - B35.1) 09/23/2024 Pain in left toe(s) (ICD-10 - M79.675) Plan Of Treatment Pending Test Test Name Order Date X ray : Ankle, left 3V 09/23/2024 *Liver Function Test (LFT) 09/23/2024 Next Appt Details Follow Up: 2-3 Months, Reaso n: Provider Name:Ling colindres, 10/30/2024 03:45:00 PM, [address] [facility], [place], [address], Progress Notes * Evelyn SCHROEDER BDOB:[birth year] (34 yo F)Acc No.[id number]:09/23/2024 Progress Note Patient:?Evelyn SCHROEDER Provider:?Ling Zamora DPM :1990???Age:34 Y???Sex:Female D ate:09/23/2024 Address:[address], [place], [place] Pcp:Cheryl Good NP Subjective: * Chief Complaints: * ???Ankle painFungal Nails * HPI: ???Ankle Pain:?Nature:?aching, bruising, pulling, ripping/tearing/searing, sharp, swelling, tenderness, throbbing.?Location:?Outside aspect of the Left ankle.?Duration: ?several weeks.?Onset/Cause:?exercise/sports.?Course:?worse.?Aggravated by:?any pressure, standing, walking.?Treatments:?rest/alter normal daily activity, ice.?Painful Nails:?Nature:?aching, tender, discolored, thick.?Location:?, Left foot.?Duration:?several years.?Course:?worse.?Aggravated by:?shoegear causing difficulty standing/walking.?Treatments:?ciclopirox gel, no improvement.?Heel pain:?Treatments:?., oral anti-inflammatories, pre-fabricated orthoses, change in shoes, rest/alter normal daily activity.?Misc:?injection provided no relief.? * ROS:?General/Constitutional:?Nausea?denies.?Vomiting?denies.?Hunger Thirst?denies.?Loss appetite?denies.?Chills?denies.?Fatigue?denies.?Fever?denies.?Night Sweats?denies.?Unexplained weight loss?denies.?Unexplained [...] History:? 2011, 2016,2022 * Hospitalization/Major Diagno stic Procedure:?No Hospitalization History. * Family History:?Mother: massiel rodriguez, diagnosed with Diabetic - NIDDM.?Father: alive, heart attack, diagnosed with Unspecified heart disease.?Paternal Grand Mother: cancer.?Paternal Grand Father: stroke, heart attack, diagnosed with Unspecified heart disease.?Maternal Grand Father: cancer.? * Social History:?Tobacco Use:?Tobacco use other than smoking?Are you an other tobacco user??No ?Tobacco Control (Standard)?Tobacco use:?Nonsmoker ?Additional Findings: Tobacco non-user?Current nonsmoker ???Drugs/Alcohol:?Drugs?Have you used drugs other than those for medical reasons in the past 12 months??No ?Alcohol Screen?Did you have a drink containing alcohol in the past year??Yes ?How often did you have a drink containing alcohol in the past year??Monthly or less (1 point) ?Points?1 ?Interpretation?Negative ???Miscellaneous:?Caffeine: yes, 1 cup per day. ?Children: yes, 3. ?Exercise: no. ?Marital status: single. 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 * Medications:?TakingIron Vit white C Zinc Cats Claw Multivitamin Atorvastatin Calcium Nabumetone 750 MG Tablet 1 tablet Orally ONCE A DAY WITH FOOD Ciclopirox Olamine 0.77 % Cream 1 application Externally Twice a day to skin of feet including between the toes Taking Iron Taking Vitamin C Taking Zinc Taking Cats Claw Taking Multivitamin Taking Atorvastatin Calcium Taking Nabumetone 750 MG Tablet 1 tablet Orally ONCE A DAY WITH FOOD Taking Ciclopirox Olamine 0.77 % Cream 1 application Externally Twice a day to skin of feet including between the toes Not-Taking/PRNNight Splint AFO - L1930 as directed Custom Orthotics as directed Probiotic Zoloft 50 MG Tablet 1 tablet Orally Once a day Larissia valACYclovir HCl LamISIL 250 MG Tablet 1 tablet Orally Once a day for 7 days then stop medication for 3 weeks then redo cycle Medication List reviewed and reconciled with the patientNot-Taking/PRN Night Splint AFO - L1930 as directed Not-Taking/PRN Custom Orthotics as directed Not-Taking/PRN Probiotic Not-Taking/PRN Zoloft 50 MG Tablet 1 tablet Orally Once a day Not-Taking/PRN Larissia Not-Taking/PRN valACYclovir HCl Not-Taking/PRN LamISIL 250 MG Tablet 1 tablet Orally Once a day for 7 days then stop medication for 3 weeks then redo cycle Medication List reviewed and reconciled with the patient * Allergies:?N.K.D.A.yes[Aller gies Verified] Objective: * Vitals:?Ht: 5ft 7in, Wt:280, BMI:43.85, Shoe size: 9, Ht-cm: 170.18 cm, Wt-k.01 kg. * Examination: ???Orthopedic: ?MUSCLE STRENGTH:?5/5 all groups in a symmetrical fashion , B/L.?ANKLE PAIN LOCATED:?LEFT, Lateral ankle, mild non pitting edema, no ecchymosis, no gross instability, mild pain with thanh joint ROM, ?Pain on palpation to, ATFL, no tenderness with palpation of CFL, achilles tendon or deltoid ligametn complex, mild tenderness on palpation of EDB, no tenderness along the peroneal tendon complex.?X-Rays - IMAGING REPORT: ?Clinical Indication(s):? Evaluate for Fracture.?Views:?3 views of Ankle, AP, LAT, LO, LEFT??Taken by trained?Podiatric Dog Behaviorist ([place]?).?Findings:?normal bone and soft tissue density consistent for patients age and sex, ankle joint symmetrical without evidence of narrowing,?, no evidence of foreign body, positive infracalcaneal exostosis.?Fracture:?Negative fractures identified.?Nails: ?NAILS are:?Elongated, overgrown, dystrophic, lytic, greater than 3mm thick, discolored and friable with crumbly malodorous subungual debris, with pain on palpation.?Dermatologic: ?SKIN FINDINGS:?Skin shows sign(s) of, erythema, scaling, [...] cool, proximal to distal, B/L.?PIGMENTATION:?normal, B/L.?EDEMA (C):?absent, B/L.? Assessment: * Assessment: 1.?Acute left ankle pain - M 25.572 (Primary)???2.?Sprain of anterior talofibular ligament of left ankle, initial encounter - S93.492A???Specify :Acute problem, Complicated w/ Multiple Tx Options(4)???Notes :Dx New problem, Prognosis Uncertain (4)???3.?Pain in right toe(s) - M79.674???4.?Onychomycosis - B35.1???Specify :Chronic problem, Worse (4)???5.?Pain in left toe(s) - M79.675??? Plan: * Treatment: 2.?Onychomycosis?LAB: *Liver Function Test (LFT) * Procedure Codes:?35622 X-RAY EXAM OF LEFT ANKLE 3V, Modifiers: 26 , LT * Preventive Medicine:? ??Counseling:?Discussion:?-14: Office or other outpatient visit for the evaluation and management of an established patient, which required a medically appropriate history and/or examination and MODERATE level of DECISION MAKING for: 1 OR MORE CHRONIC PROBLEM(S) THATS WORSENING, 2 STABLE CHRONIC PROBLEMS, A NEWLY DIAGNOSED PROBLEM WITH UNCERTAIN PROGNOSIS, AN ACUTE COMPLICATED INJURY WITH MULTIPLE TREATMENT OPTIONS, OR AN ACUTE PROBLEM WITH ACCOMPANYING SYSTEMIC SYMPTOMS, THAT POSE(S) A MODERATE RISK OF MORBIDITY. THIS CONDITION MAY ALSO INCLUDE RX DRUG MANAGEMENT, OR A DECISON FOR MINOR SURGERY. The visit on the day of the [...] have encouraged the patient to call the office.?Ankle Pain:?I explained to the patient the possible etiologies of their Ankle Pain, including foot type/shoegear/activity level/exercise routine and the risks/benefits of all the different treatment options for pain including: No treatment at all, Rest, Ice, NSAIDs(only if well tolerated after meals), New/supportive Shoegear, Strappings and Tapings, Foot/Ankle AFO Bracing, Stretching exercises, Deep Tissue Massage, Heel cups/cushions, Arch support/shoe inserts, Custom orthoses, Topical analgesics including Aspercream/Voltaren gel, Night splints for am stiffness, Physical Therapy, EPAT/ESWT, Interfil injection therapy. Advantages and disadvantages of each option were discussed and the patients questions re: shoegear, custom vs prefabricated inserts, activity level, PO vs Topical medications (and their respective potential complications/drug interactions/side effects), and consistency in home treatment regimens for optimal success were answered to their verbally confirmed satisfaction. MRI Of left foot and ankle ordered given recalcitrant heel pain and ankle pain.?Fungal Nail Counseling:?The patient was counseled on the diagnosis, potential etiologies (including, but not limited to, environmental factors, genetic, immune deficiency), and the multiple treatment options for Onychomycosis. We discussed the risks and benefits of each option from performing no treatment, to ultraviolet light shoe treatment, to laser nail treatment, to applying topical antifungals, to taking oral antifungal medication, to surgical removal of the involved nail(s) with or without performing a matricectomy, or any combination thereof. We discussed the advantages and disadvantages of each of possible treatment and importance for adherence to all the recommended therapies for optimum success. This includes the necessity for weekly emery board self nail home debridements, and control the nail and skin environment as much as possible by only using a fresh, dry pair of shoes/socks each day, as well as keeping the skin as dry as possible through the use of sprays/powders if necessary. The patient was instructed to discard the emery board after use to prevent reinfection of the involved nail(s). We discussed the mycological and visual clinical effectiveness of topical vs oral antifungal treatments as well as each ones potential side effects and/or any patient- specific medication interactions. We discussed the reasons behind the important requirement of regular liver function testing with oral antifungal therapy for safety. Patient questions regarding use, dosage, successful outcomes, blood tests, and possible pharmaceutical interactions were reviewed and the patient verbalized that all answers were clearly understood, An LFT was ordered in preparation for Lamisil prescription therapy.?Orthotics:?AFO - I explained to the patient the benefits of AFO use. Recomm AFO Lower Extrmity Bracing to accomidate the patients deformity and result in pain relief without surgery, Patient signed confirmation form indicating receipt of DME device.?P.R.I.C.E.:?The patient was counseled on the use of P.R.I.C.E. and NSAIDS (if well tolerated) to aid in the recovery from their painful condition, Recommended Topical analgesics including Aspercream/Biofreeze/Voltaren gel as directed.? ??Screening/Special Tests:?FALLS: Screening for Future Fall Risk?Have you had two or more falls in the past year??No ?Have you had any falls with injury in the past year??Yes * Follow Up:?2-3 Months * Images: * Sign off status: Completed true * Provider:?Ling Zamora DPM Date:?0 09/23/2024 Generated for James aguilera/Fashantelleg/eTransmitting on:?09/24/2024 03:00 PM EDT History and Physical Notes * HPI (History of Present Illness) Category Sub-Category Detail Notes Category Not es Heel pain Treatments: ., oral anti-inf lammatories, pre-fabricated orthoses, change in shoes, rest/alter normal daily activity Misc: injection provided n o relief Ankle Pain Duration: several weeks Nature: aching, bruising, pu lling, ripping/tearing/searing, sharp, swelling, tenderness, throbbing Treatments: rest/alter normal da michelle activity, ice Course: worse Location: Outside aspect of th e Left ankle Onset/Cause: exercise/sports Aggravated by: any pressure, standi ng, walking Painful Nails Aggravated by: shoegear causing difficul ty standing/walking Course: worse Duration: several years Location: , Left foot Nature: aching, tender, disc olored, thick Treatments: ciclopirox gel, no i mprovement Examination Category Sub-Category Detail Notes Category Not [...] fashion, no fissure(s) present, LEFT foot Orthopedic ANKLE PAIN LOCATED: LEFT, Latera l ankle, mild non pitting edema, no ecchymosis, no gross instability, mild pain with thanh joint ROM, Pain on palpation to, ATFL, no tenderness with palpation of CFL, achilles tendon or deltoid ligametn complex, mild tenderness on palpation of EDB, no tenderness along the peroneal tendon complex MUSCLE STRENGTH: 5/5 all groups in a symmetrical fashion , B/L General Examination GENERAL APPEARANCE: [...] EDEMA (C): absent, B/L PIGMENTATION: normal, B/L Nails NAILS are: Elongated, overg rown, dystrophic, lytic, greater than 3mm thick, discolored and friable with crumbly malodorous subungual debris, with pain on palpation X-Rays - IMAGING REPORT Findings: normal b one and soft tissue density consistent for patients age and sex, ankle joint symmetrical without evidence of narrowing, , no evidence of foreign body, positive infracalcaneal exostosis Fracture: Negative fractures i dentified Views: 3 views of Ankle, AP , LAT, LO, LEFT Taken by trained Podiatric Dog Behaviorist ([place] ) Clinical Indication(s): Evaluate for Fra cture
--- OUTSIDE RECORDS SUMMARY | 2024-09-24 15:01 | XMS_ITS ---
Author Organization [facility] Address [address] [place] [address] Care Team Providers Care Geological Sample Tester Name Role Phone Florentino LIEUTENANT FIREFIGHTER, Cheryl Primary Care Provider Unavail Ling Gatica [phone] REASON FOR VISIT MRI appt Encounters Encounter Location Date Provider Diagnosis [address] [address] 06/09/2024 Ling Zamora Plan Of Treatment Next Appt Details Provider Name:Ling colindres, 10/30/2024 03:45:00 PM, [address] [place], [address], Progress Notes * Evelyn SCHROEDER BDOB:[birth year] (34 yo F)Acc No.[id number]:06/09/2024 Patient:?Evelyn SCHROEDER :1990???Age:34 Y???Sex:Female Address:[address] [place] [address] * true * Date:? Generated for Ronniei ale/Thania/eTransmitting on:?09/24/2024 03:00 PM EDT
--- OUTSIDE RECORDS SUMMARY | 2024-09-24 15:01 | XMS_ITS | Data Portability ---
Author Organization [place] - [facility], Allergy Address [address] [place] [id number] Care Team Providers Care Specialty Transformer Assembler Name Role Phone NADEEM PLUNKETT Primary Care Provider Assessment No assessment recorded. Plan of Treatment Reminders Order Date Submit Date Provider Last Modified By Organization Details Last Modified Time Details Appointments None recorded. Lab None recorded. Referral None recorded. Procedures None recorded. Surgeries None recorded. Imaging None recorded. Medication Orders Augmentin 875 mg-125 mg tablet 2023 [facility] [id number] [facility]/Pharmacy #[id number], [address] [place], [address], 4 15:32:53 Patient TargetsNo targets recorded. Patient InstructionsNo instructions recorded. Reason for Referral None Reported. Problems Name Problem SNOMED Code Status Onset Date Resolution Date Notes Provider Name and Address Organization Details Recorded Time Peritonsillar abscess [id number] Active 2023 CONG Pennington MD [address] [place] [address], [id number] 2[facility] 4 15:52:53 Problem Notes None recorded. [...] Updated DateTime 01/24/2024 170.18 cm 45.4 kg/m2 215020.7 9 g 128 mm[Hg] 75 mm[Hg] Magy Quiñonez [place] - [facility] 15:22:37 Social History None recorded. Functional Status None recorded. Mental Status None recorded. Family History Nothing Reported. Medical History No medical history recorded. Gynecological HistoryNo gynecological history recorded. Obstetrics History GPAL:G 0 P 0 0 0 0 Past Encounters Encounter ID Performer Location Encounter Start Date Encounter Closed Date Diagnosis/Indication Diagnosis SNOMED-CT Code Diagnosis ICD10 Code Diagnosis Note [id number] CONG ESPINOZA MD [facility] [address] [phone] 01/24/2024 14:55:03 01/24/2024 15:59:06 Peritonsillar abscess [id number] J36 She is clinically improved with improved [...] Lester Member ID Guarantor Name 01/24/2024 2 [place] [facility] Evelyn Samuelimaldi [id number] Evelyn Saad Burdick 01/24/2024 1 [employer] (EPO) [id number] Evelyn Saad SamuelHeavenly [id number] Evelynrodolfo Burdick Notes Date Note Type Note Provider Name and Address Organization Details Recorded Time 01/24/2024 text/html Sore throat bega n 01/15. She began abx then (PCN) by urgent care. She was seen at [place] [facility] last night and transferred to [facility] last night and had an aspiration of a right [employer] with 3cc of purulence removed by the ER. She has been on abx 3-4 times in the last year for sore throat. CONG ESPINOZA MD [address] [place] [address], [phone], [place] - [facility] 01/24/2024 16:00:41 OBGyn Episode No OBEpisode recorded.
--- OUTSIDE RECORDS SUMMARY | 2024-09-24 15:01 | XMS_ITS | Clinical Summary ---
Author Organization [facility] Address [address] [place] [address] Care Team Providers Care Psychiatric Specialist Name Role Phone Unavailable Primary Care Provider [...] Cervical Cancer Screening 2011 Pap Smear 2011 [id number] ( season) 2024 021, 03/31/2021 Imm-Influenza (#1) 2024 05/11/2023, 1 , 03/28/2010 Alcohol and Drug Screen 05/28/2024 Depression Annual Screen 05/28/2024 Imm-DTaP/Tdap/Td (10 - Td or Tdap) 07/18/2032 07/18/2022, 11/12/2017, 08/25/2011, Additional history exists Imm-Hepatitis B Completed 06/28/1996, 05/1995, 12/27/1995 Cervical Ablation/Cold-Knife Conization Discontinued Cervical Cryotherapy Discontinued Colposcopy Discontinued Endometrial Biopsy Discontinued Excision/Leep Discontinued HPV Genotyping Discontinued Vaginal Pap Discontinued Vulvoscopy Discontinued [place] [facility] [facility]
== END 2024-09-24 13:46 | disposition home or self-care (01) ==
LOC: HO.LAB 13:45
PROVIDERS: PCP Nurse Practitioner Family; Visit Provider Student in an Organized Health Care Education/Training Program
DX: B35.1 Tinea unguium (principal)
CPT/HCPCS: 36415; 80076

== ENCOUNTER 2024-10-01 17:20 | Outpatient (REF) | payer OTHER, MEDICAID, SELFPAY ==
--- NOTE | ~2024-10-01 | MR_ITS ---
EXAMINATION: MR ANKLE WITHOUT IV CONTRAST LEFT, MR FOOT WITHOUT IV CONTRAST LEFT HISTORY: CHRONIC PAIN. TECHNIQUE: Sagittal T1 and fat suppressed T2, axial proton density and fat suppressed T2, axial oblique proton density, and coronal fat suppressed proton density weighted MR images of the left ankle were obtained. Subsequently, axial and sagittal T1, and axial, sagittal, and coronal STIR images of the left forefoot were obtained. COMPARISON: There are no prior studies for comparison. FINDINGS: There is a small focus of marrow edema in the posteromedial aspect of the medial cuneiform. There is a small plantar calcaneal spur which also demonstrates mild marrow edema. There is a small tibiotalar joint effusion. The flexor, extensor, Achilles, and peroneal tendons are intact. No ligamentous abnormality is identified. The plantar aponeurosis is diffusely thickened and there is a focus of fluid signal intensity within the plantaris aponeurosis adjacent to the calcaneal enthesophyte. There is mild adjacent soft tissue edema. Findings are consistent with plantar fasciitis. Normal signal intensity is noted in the sinus Tarsi. There is subcutaneous edema of the distal calf. There is mild bone marrow edema in the proximal portion of the 4th metatarsal shaft, suggestive of a stress injury. The remaining bones of the forefoot demonstrate normal marrow signal intensity. No tendon or ligamentous abnormality is seen in the forefoot. There is no joint effusion or fluid collection. MR/MR ankle LT wo con IMPRESSION: 1. Findings suggestive of a stress injury involving the proximal portion of the 4th metatarsal. 2. Small focus of marrow edema involving the posteromedial aspect of the medial cuneiform, which may represent a bone contusion. 3. Plantar fasciitis as described. Electronically signed by: Stephen Paulino MD 10/02/2024 08:44 AM EDT
== END 2024-10-01 17:21 | disposition home or self-care (01) ==
LOC: HO.MRI 17:20
PROVIDERS: PCP Nurse Practitioner Family; Visit Provider Student in an Organized Health Care Education/Training Program
DX: M72.2 Plantar fascial fibromatosis (principal); S93.492A Sprain of other ligament of left ankle, initial encounter
CPT/HCPCS: 73718; 73721

== ENCOUNTER → 2024-10-01 17:43 | Outpatient (BNV) | payer OTHER, MEDICAID, SELFPAY | PROVIDERS: PCP Nurse Practitioner Family; Visit Provider Radiology Diagnostic Radiology | DX: M72.2 Plantar fascial fibromatosis (principal); M89.9 Disorder of bone, unspecified | CPT/HCPCS: 73718; 73721 ==